=== PATIENT | male | born 1965 | race Caucasian/White ===

== ENCOUNTER → 2019-09-29 | Outpatient (CLI) | payer BC ==
--- NOTE | 2019-09-29 10:41 | REP ---
REASON FOR EXAM: Right upper quadrant pain. PRIORS: None. After the intravenous administration of 6.6 millicuries of technetium 99m Choletec, hepatobiliary imaging was performed with gallbladder ejection fraction calculation. There is diffuse rather symmetric appearing uptake of the radiotracer throughout the hepatocytes. The gallbladder is promptly visualized at 35 minutes. Biliary to bowel transit time is normal. The gallbladder ejection fraction calculation is 17%. IMPRESSION: Abnormally low gallbladder ejection fraction calculation as described above. Conditions which render that abnormality are as follows: A. Chronic acalculous cholecystitis. B. Cystic duct syndrome. C. 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 Electronically Signed by Yandel Lara DO 09/29/2019 10:47 A
== END ==
LOC: M RAD 07:11
PROVIDERS: ATTEND Family Medicine Addiction Medicine
DX: R93.2 Abnormal findings on diagnostic imaging of liver and biliary tract (principal); R10.11 Right upper quadrant pain
CPT/HCPCS: 78227; A9537

== ENCOUNTER → 2020-05-06 | Outpatient (CLI) | payer BC ==
[2020-05-06 13:54] LABS: ALBUMIN 3.9 GM/DL (3.2-5.2); BILIRUBIN,DIRECT 0.1 MG/DL (0.0-0.2); BILIRUBIN,TOTAL 0.4 MG/DL (0.2-1.0); TOTAL PROTEIN 7.1 GM/DL (6.4-8.2)
[2020-05-06 14:01] LABS: H PYLORI QUALITATIVE IgG NEGATIVE (NEGATIVE)
[2020-05-06 14:02] LABS: FOLATE 21.7 NG/ML
[2020-05-08 03:10] LABS: IGASUB2 212.9 mg/dL (73.2-301.2); IGASUB3 38.5 mg/dL (13.4-97.9); IgA SERUM (part of Subclasses) 271 mg/dL (90-386); TISSUE TRANSGLUTAMINASE IgA <2 U/mL (0-3)
== END ==
LOC: M LAB 11:59
PROVIDERS: ATTEND Internal Medicine Gastroenterology
DX: R10.10 Upper abdominal pain, unspecified (principal)

== ENCOUNTER → 2025-02-20 | Outpatient (CLI) | payer BC | LOC: M CARPUL 09:41 | PROVIDERS: ATTEND Physician Assistant | DX: R94.31 Abnormal electrocardiogram [ECG] [EKG] (principal) ==

== ENCOUNTER → 2025-04-03 | Outpatient (CLI) | payer BC | LOC: M CARPUL 15:10 | PROVIDERS: ATTEND Physician Assistant | DX: R94.31 Abnormal electrocardiogram [ECG] [EKG] (principal) ==